=== PATIENT | female | born 1985 | race Caucasian/White ===

== ENCOUNTER 2017-06-11 13:17 | Emergency (ER) | payer OTHER ==
--- NOTE | 2017-06-11 13:44 | EDPHY ---
HPI/HX/ROS/PE/MDM - Data Points Imaging: I viewed and interpreted images myself Narrative: CHIEF COMPLAINT: Shortness of breath, paresthesias HPI: This patient is a 32 y/o female complaining of shortness of breath and generalized paresthesias. This afternoon she had a sensation as if she were going to develop a headache, and then became very short of breath. She left work early, and when she arrived home she had a general tingly sensation, especially in her hands. Per her significant other, she complained of blurred peripheral vision as well and he noted she was hyperventilating when she got home. She noted facial paresthesias on the right and went to urgent care for evaluation. Staff there referred her to the emergency department. The patient has never had similar symptoms in the past and had been feeling well this morning. She denies any recent unusual stress, but notes she felt especially emotional. She has history of hypothyroidism but denies any recent changes in Levothyroxine dosage. TSH was last tested 6-7 months ago. She is currently on her menstrual period. No chest pain, nausea, vomiting, diarrhea, urinary complaints, or other associated symptoms. REVIEW OF SYSTEMS: Aside from elements discussed in the HPI, a comprehensive 10-point review of systems was reviewed and is negative. PMH: Hypothyroid (Levothyroxine). SOCIAL HISTORY: . Significant other at bedside. Employed. PHYSICAL EXAM: General:Patient is alert, in no acute distress. ENT:Eyes are normal to inspection. ENT inspection normal. Neck: Normal inspection. Full range of motion. Respiratory:No respiratory distress. Breath sounds normal bilaterally. Cardiovascular: Regular rate and rhythm. Strong peripheral pulses. Normal cap refill. Abdomen:The abdomen is nontender to palpation. There are no peritoneal signs. There are normal bowel sounds. Back: Normal to inspection. No tenderness to palpation. Skin: Normal color. No rash. Warm and dry. Extremities: Normal appearance. Full range of motion. Neuro: Oriented x3. Normal motor function. Normal sensory function. No pronator drift. No dysdiadochokinesia. (Logan Bower) ED Course: 32 y/o female presents with shortness of breath and paresthesias in her face and extremities. Exam unremarkable. She is neurologically intact. Plan for EKG, labs including CBC, chemistries, troponin, TSH. Chest x-ray negative for acute processes. 15:11 Reassessed patient. Her numb sensation has moved to the left side of her face now . Plan for CT head for further evaluation. 15:30 Care of this patient transferred to Dr. Maloney at shift change pending CT results. (Logan Bower) MDM: I assumed care of this patient from Dr. Bower at 3:[address] scan of her head was reported to me by Dr. Dye at 3:40 p.m.. The study is normal. I examined the patient at 4:20 p.m.. She is resting comfortably and feels back to normal. She does not have headache. She is comfortable returning home. We discussed the danger signs that should prompt her to come back to the emergency department. She is being referred to a primary care physician, as she does not have 1. She was also given and Neurology referral to use if she has persistent headaches. (Joan Maloney) - Data Points Imaging Results: Imaging Impressions Chest X-Ray 06/11/17 13:51 Impression: No acute pulmonary disease. Head CT 06/11/17 15:11 Impression: There is no acute intracranial abnormality identified on this unenhanced CT evaluation. If there is further clinical concern regarding the patient's symptoms, MR imaging is suggested, if not otherwise contraindicated. Findings were discussed with Joan Maloney MD at 15:33, on 06/11/2017. Laboratory Results: Laboratory Results 06/11/17 14:20 06/11/17 14:20 06/11/17 06/11/17 06/11/17 14:20 14:20 14:20 WBC 6.76 10^3/uL 10^3/uL (3.80-9.50) RBC 4.30 10^6/uL 10^6/uL (4.18-5.33) Hgb 13.2 g/dL g/dL (12.6-16.3) Hct 39.0 % % (38.0-47.0) MCV 90.7 fL fL (81.5-99.8) MCH 30.7 pg pg (27.9-34.1) MCHC 33.8 g/dL g/dL (32.4-36.7) RDW 12.9 % % (11.5-15.2) Plt Count 306 10^3/uL 10^3/uL (150-400) MPV 9.9 fL fL (8.7-11.7) Neut % (Auto) 62.4 % % (39.3-74.2) Lymph % (Auto) 26.2 % % (15.0-45.0) Thomas % (Auto) 7.5 % % (4.5-13.0) Eos % (Auto) 3.0 % % (0.6-7.6) Baso % (Auto) 0.6 % % (0.3-1.7) Nucleat RBC Rel Count 0.0 % % (0.0-0.2) Absolute Neuts (auto) 4.22 10^3/uL 10^3/uL (1.70-6.50) Absolute Lymphs (auto) 1.77 10^3/uL 10^3/uL (1.00-3.00) Absolute Monos (auto) 0.51 10^3/uL 10^3/uL (0.30-0.80) Absolute Eos (auto) 0.20 10^3/uL 10^3/uL (0.03-0.40) Absolute Basos (auto) 0.04 10^3/uL 10^3/uL (0.02-0.10) Absolute Nucleated RBC 0.00 10^3/uL 10^3/uL (0-0.01) Immature Gran % 0.3 % % (0.0-1.1) Immature Gran # 0.02 10^3/uL 10^3/uL (0.00-0.10) Sodium 144 mEq/L mEq/L (135-145) Potassium 3.8 mEq/L mEq/L (3.5-5.2) Chloride 107 mEq/L mEq/L (97-110) Carbon Dioxide 26 mEq/l mEq/l (22-31) Anion Gap 11 mEq/L mEq/L (8-16) BUN 7 mg/dL mg/dL (7-23) Creatinine 0.7 mg/dL mg/dL (0.6-1.0) Estimated GFR > 60 Glucose 92 mg/dL mg/dL (70-100) Calcium 9.6 mg/dL mg/dL (8.5-10.4) Troponin I < 0.012 ng/mL ng/mL (0.000-0.034) TSH 2.250 uIU/mL uIU/mL (0.465-4.680) Beta HCG, Qual NEGATIVE Medications Given: Discontinued Medications Diphenhydramine HCl (Benadryl Injection) 25 mg IVP EDNOW ONE Stop: 06/11/17 15:26 Last Admin: 06/11/17 15:48 Dose: 25 mg Sodium Chloride (Ns) 1,000 mls @ 0 mls/hr IV EDNOW ONE; Wide Open PRN Reason: Protocol Stop: 06/11/17 13:52 Last Admin: 06/11/17 14:24 Dose: 1,000 mls Metoclopramide HCl (Reglan Injection) 10 mg IVP EDNOW ONE Stop: 06/11/17 15:26 Last Admin: 06/11/17 15:48 Dose: 10 mg General Time Seen by Provider: 06/11/17 13:42 Initial Vital Signs: Initial Vital Signs Temperature (C) 37 C 06/11/17 13:20 Heart Rate 94 06/11/17 13:20 Respiratory Rate 22 H 06/11/17 13:20 Blood Pressure 137/69 H 06/11/17 13:20 O2 Sat (%) 100 06/11/17 13:20 O2 Delivery Mode Room Air Allergies/Adverse Reactions: ceftriaxone Allergy (Verified 06/11/17 13:19) Home Medications: Medication Instructions Recorded Levothyroxine 06/11/17 Departure - Departure Disposition: Home, Routine, Self-Care Clinical Impression: Hyperventilation Migraine headache Qualifiers: Migraine type: unspecified Status migrainosus presence: without status migrainosus Intractability: not intractable Qualified Code(s): G43.909 - Migraine, unspecified, not intractable, without status migrainosus Condition: Good Instructions: Hyperventilation (ED), Migraine Headache (ED) Additional Instructions: Follow-up with your primary doctor within 2-3 days. You have been referred to Dr. Pantoja for primary care. I am also referring you to Dr. Crawford, neurologist. If you have frequent headaches I recommend that you see a neurologist. If you develop similar symptoms again I recommend taking Tylenol and ibuprofen to reina off headache. Adult Pain & Fever Control: We recommend Acetaminophen (Tylenol) and Ibuprofen (Motrin,Advil) for pain and fever control. When fever is high or pain severe, both drugs can be used at the same time, but at different intervals. Please note the time differences. Your dose is: Acetaminophen 650mg every 4 to 6 hours Ibuprofen 400mg every 6 hours with food OR Note: do not take Acetaminophen with Hydrocodone (Vicodin, Lortab) or Oycodone (Percocet). These medications also contain Acetaminophen. No more than 3000mg of Acetaminophen should be taken in 24 hours (for an adult). Return to the Emergency Department for fever, chest pain, shortness of breath, increasing pain or other worsening of condition. Referrals: Mark Anthony Pantoja MD [place] [place] - As per Instructions Cayden Ramírez DO [Doctor of Osteopathy] - As per Instructions Report Scribed for: Logan Bower Report Scribed by: Effie Morris Date of Report: 06/11/17 Time of Report: 13:43 Physician Review and Approval Statement: Portions of this note were transcribed by an ED scribe. I personally performed the history, physical exam, and medical decision making; and confirm the accuracy of the information in the transcribed note.
[2017-06-11] MEDS ORDERED: NS 1,000 ML IV ONE (13:51)
--- NOTE | 2017-06-11 14:18 | CPEKG ---
Heart Rate: 57 RR Interval: 1053 P-R Interval: 124 QRSD Interval: 98 QT Interval: 464 QTC Interval: 452 P [place]: 64 QRS [place]: 83 T Wave [place]: 31 EKG Severity - NORMAL ECG - EKG Impression: SINUS RHYTHM Electronically Signed By: Ross Rodas 13-Jun-2017 12:49:48
[2017-06-11 14:48] LABS: PLATELET COUNT 306 10^3/uL (150-400)
[2017-06-11] MEDS ORDERED: METOCLOPRAMIDE 10 MG/2 ML VIAL IVP ONE (15:25)
[2017-06-11 17:15] VITALS: BP 106/66
== END 2017-06-11 17:15 | disposition home or self-care (01) ==
DX: R06.4 Hyperventilation (principal); G43.909 Migraine, unspecified, not intractable, without status migrainosus; E86.9 Volume depletion, unspecified
CPT/HCPCS: 96374; J1200; J2765

== ENCOUNTER → 2018-08-17 | Outpatient (CLI) | payer OTHER | LOC: FIMAGING 07:30 ==